=== PATIENT | female | born 1970 | race Two or more races ===

== ENCOUNTER 2020-12-07 18:04 | Inpatient (IN) | payer SELFPAY ==
[~2020-12-07] VITALS: Ht 162.6 cm; Wt 97.8 kg
--- NOTE | 2020-12-07 20:13 | PHYS DOC ---
Past Medical History Past Surgical History: Other Additional Past Surgical Histo: HEAD- CLOT REMOVED (MARIZA CAVAZOS APRN) General Adult EDM: Chief Complaint: EYE PROBLEMS HPI: HPI: Patient is a 50 year old female who presents with for last month she has had right eye redness with pain around the eye. She denies vision change, dizziness, headache, nausea, vomiting, chest pain, numbness or tingling, shortness of breath, abdominal pain, back pain, neck pain, fever, discharge from the eye. She denies any injury to the eye. She states that she went and saw an eye doctor on November 13 and they gave her tobramycin eye drops but that did not help. Patient has been off of her hypertensive medications for months. She states she does not remember what the name of the medication was. In the ED patient's blood pressure is in the 200s over 100s. She did have a stroke with a clot removal in 2016. Rates her pain at a 7 out of 10 at this time. (MARIZA CAVAZOS APRN) Review of Systems: Review of Systems: Constitutional: Denies fever or chills. [] Eyes: Denies change in visual acuity. +Right eye redness, +right eye pain[] HENT: Denies nasal congestion or sore throat. [] Respiratory: Denies cough or shortness of breath. [] Cardiovascular: Denies chest pain or edema. [] GI: Denies abdominal pain, nausea, vomiting, bloody stools or diarrhea. [] : Denies dysuria. [] Musculoskeletal: Denies back pain or joint pain. [] Integument: Denies rash. [] Neurologic: Denies headache, focal weakness or sensory changes. [] Endocrine: Denies polyuria or polydipsia. [] Lymphatic: Denies swollen glands. [] Psychiatric: Denies depression or anxiety. [] (MARIZA CAVAZOS APRN) Heart Score: C/O Chest Pain: No HEART Score for Chest Pain: HEART Score for Chest Pain Response (Comments) Value History Slighlty/Non-Suspicious 0 ECG Nonspecific Repolarizatio 1 Age >45 - < 65 1 Risk Factors 1 or 2 Risk Factors 1 Troponin < Normal Limit 0 Total 3 Risk Factors: Risk Factors: DM, Current or recent (<one month) smoker, HTN, HLP, family history of CAD, obesity. Risk Scores: Score 0 - 3: 2.5% MACE over next 6 weeks - Discharge Home Score 4 - 6: 20.3% MACE over next 6 weeks - Admit for Clinical Observation Score 7 - 10: 72.7% MACE over next 6 weeks - Early Invasive Strategies (MARIZA CAVAZOS APRN) Current Medications: Current Medications Medications (Trade) Dose Ordered Sig/Michelle Start Time Stop Time Status Last Admin Dose Admin Fluorescein Sodium (Ful-Sasha) 1 strip 1X ONCE 12/07/20 20:15 12/07/20 20:16 Hydralazine HCl (Apresoline Inj) 10 mg 1X ONCE 12/07/20 20:15 12/07/20 20:16 Tetracaine HCl (Tetracaine) 1 drop 1X ONCE 12/07/20 20:15 12/07/20 20:16 (MARIZA CAVAZOS APRN) Allergies: Allergies: Allergies Coded Allergies Type Severity Reaction Last Updated Verified No Known Drug Allergies 12/07/20 No (MARIZA CAVAZOS APRN) Physical Exam: PE: Constitutional: Well developed, well nourished, no acute distress, non-toxic appearance. [] HENT: Normocephalic, atraumatic, bilateral external ears normal, oropharynx moist, no oral exudates, nose normal. Right eye conjunctiva hemorrhage [] Eyes: PERRLA, EOMI, conjunctiva normal, no discharge. [] Neck: Normal range of motion, no tenderness, supple, no stridor. [] Cardiovascular:Heart rate regular rhythm, no murmur [] Lungs & Thorax: Bilateral breath sounds clear to auscultation [] Abdomen: Bowel sounds normal, soft, no tenderness, no masses, no pulsatile masses. [] Skin: Warm, dry, no erythema, no rash. [] Back: No tenderness, no CVA tenderness. [] Extremities: No tenderness, no cyanosis, no clubbing, ROM intact, no edema. [] Neurologic: Alert and oriented X 3, normal motor function, normal sensory function, no focal deficits noted. [] Psychologic: Affect normal, judgement normal, mood normal. [] (MARIZA CAVAZOS APRN) Current Patient Data: Vital Signs: Vital Signs Date Time Temp Pulse Resp B/P (MAP) Pulse Ox O2 Delivery O2 Flow Rate FiO2 12/07/20 19:38 98.2 81 20 221/123 (155) 97 Room Air 98.2 (MARIZA CAVAZOS APRN) EKG: EK and read by Dr. Bland as sinus rhythm and no STEMI (MARIZA CAVAZOS APRN) Radiology/Procedures: Radiology/Procedures: [] Impression: [facility] [address] [place] [address] IMAGING REPORT Signed PATIENT: LATONYA DE LA CRUZOUNT: [id number] : 1970 LOCATION: ER AGE: 50 SEX: F EXAM STATUS: REG ER ORD. PHYSICIAN: MARIZA CAVAZOS APRN REASON: headache behind right eye PROCEDURE: CT HEAD WO CONTRAST EXAM: CT Head without IV contrast CLINICAL HISTORY: Reason: headache behind right eye / Spl. Instructions: / History: COMPARISON: None. TECHNIQUE: Routine CT of the head without contrast. PQRS compliance statement - One or more of the following individualized dose reduction techniques were utilized for this study: 1. Automated exposure control 2. Adjustment of the mA and/or kV according to patient size 3. Use of iterative reconstruction technique FINDINGS: There is no evidence of hemorrhage, mass or extra-axial fluid collection. Houston-white differentiation is maintained with no evidence of edema. There is no mass effect or shift of the intracranial structures. The ventricles, basilar cisterns and cortical sulci are normal in size and configuration for the patients stated age. Wedge-shaped low-attenuation in the right cerebellum likely cerebellar infarct. Frontal craniotomy changes are seen with associated metallic clips. There is normal aeration of the visualized paranasal sinuses and mastoid air cells. The visualized portions of the orbits are normal. Atherosclerotic calcifications of the intracranial internal carotid arteries is seen. IMPRESSION: 1. Wedge-shaped low-attenuation in the right cerebellum, cerebellar infarct likely chronic. This can be further assessed by MRI if clinically indicated. 2. No evidence for acute intracranial process Electronically signed by: Conor Mack MD (12/07/2020 9:37 PM) [facility] DI[facility]ATED and SIGNED BY: CONOR MACK MD DATE: 12/07/[id number] 0 [facility] [address] [place] [address] IMAGING REPORT Signed PATIENT: ARIANNA DE LA CRUZ: [id number] : 1970 LOCATION: ER AGE: 50 SEX: F EXAM STATUS: REG ER ORD. PHYSICIAN: MARIZA CAVAZOS APRN REASON: conjunctiva hemorrhage, hypertensive emergency, previous stroke. PROCEDURE: CT ORBITS WO CONTRAST CT orbits without contrast PQRS statement: CT scans at this facility use dose reduction including either automated exposure control, iterative reconstructions, and /or weight based radiation dosing via mA and kV modification when appropriate to reduce radiation dose to as low as reasonably achievable. HISTORY: Conjuncitval hemorrhage, hypertensive emergency, prior stroke. FINDINGS: Bony orbits intact. No fracture of the orbits. Imaged facial bones are intact. Mild mucosal thickening of the floor the maxillary sinuses, paranasal sinuses are otherwise well-aerated. No orbital edema, hematoma or mass. No ocular proptosis. The ocular globes, extraocular muscles, lacrimal glands and op tic nerves and facet are symmetric and normal. Periorbital soft tissues are symmetric and normal. Embolization coils anterior anterior interhemispheric fissure. IMPRESSION: Normal CT orbits. Electronically signed by: Isaak Lowery MD (12/07/2020 10:47 PM) [facility] [place] DICTATED and SIGNED BY: ISAAK LOWERY MD DATE: 12/07/[id number] 0 (MARIZA CAVAZOS APRN) Course & Med Decision Making: Course & Med Decision Making Pertinent Labs and Imaging studies reviewed. (See chart for details) See HPI. Alert and oriented x4. Ambulatory steady gait. Skin pink warm and dry. Right eye conjunctiva hemorrhage. PERRLA. Speaks in full clear sentences. No focal weakness or numbness and tingling. EKG shows a sinus rhythm and no STEMI. Patient is given 10 mg of hydralazine IV. No extremity edema. Imwnuz-bblu-lilwhi intact. No extraocular pain. Denies vision loss, floaters, or halo's. After hydralazine patient's blood pressure is still 240s over 100s. Patient is given labetalol. Patient mid to hospitalist for hypertensive emergency. Eye Exam Visual accuity: See nursing note Eye exam: PERRL, Extraocular muscles intact. No signs of ruptured globe. Left sclera pink. Right sclera hemorrhage. Red reflex present. Foreign body: No foreign bodies seen with examination or with lid flip exam. Obed-pen: Not in working order Fluorescein test: No corneal abrasion. No fluorescein uptake Anesthetic: Tetracaine [] (MARIZA CAVAZOS APRN) Course & Med Decision Making I have participated in the care of this patient and I have reviewed and agree with all pertinent clinical information above including history, exam, and recommendations. Deepak Bland DO (DEEPAK BLAND DO) Sisi Disclaimer: Sisi Disclaimer: This electronic medical record was generated, in whole or in part, using a voice recognition dictation system. (MARIZA CAVAZOS APRN) Departure Departure Impression: Primary Impression: Hypertensive emergency Additional Impression: Scleral hemorrhage of right eye Disposition: ADMITTED INPATIENT Admitting Physician: TAQUERIA (MARIZA CAVAZOS APRN) Condition: STABLE Referrals: NO PCP (PCP) MARIZA CAVAZOS APRN Dec 07, 2020 20:13 DEEPAK BLAND DO Dec 08, 2020 00:18
[2020-12-07] MEDS ORDERED: FLUORESCEIN OPHTH TEST STRIP. OD ONE (20:15)
[2020-12-07] MEDS ORDERED: hydrALAZINE 20 MG/ML VIAL. IVP ONE (20:15)
[2020-12-07] MEDS ORDERED: TETRACAINE 0.5% OPHTH SOLUTION 4ML BOTTLE. OD ONE (20:15)
[2020-12-07 20:34] LABS: BILIRUBIN,URINE NEGATIVE (NEG); CLARITY,URINE CLEAR; COLOR,URINE YELLOW; NITRITE,URINE NEGATIVE (NEG); PH,URINE 5.5 (<5.0-8.0); PROTEIN,URINE NEGATIVE (NEG-TRACE); UROBILINOGEN,URINE 0.2 mg/dL (0.2 mg/dL)
[2020-12-07 20:40] LABS: BACTERIA,URINE FEW /HPF (0-FEW); RBC,URINE 0 /HPF (0-2); WBC,URINE OCC /HPF (0-4)
[2020-12-07 20:48] LABS: BASO # 0.1 x10^3/uL (0.0-0.2); BASO % 2 % (0-3); EOS # 0.1 x10^3/uL (0.0-0.7); EOS % 1 % (0-3); HEMATOCRIT 36.4 % (36.0-47.0); HEMOGLOBIN 12.2 g/dL (12.0-15.5); LYMPH # 2.6 x10^3/uL (1.0-4.8); LYMPH % 34 % (24-48); MEAN CORPUSCULAR HEMOGLOBIN 26 pg (25-35); MEAN CORPUSCULAR HGB CONC 34 g/dL (31-37); MEAN CORPUSCULAR VOLUME 78 fL (79-100); MONO # 0.6 x10^3/uL (0.0-1.1); MONO % 8 % (0-9); NEUT # 4.3 x10^3/uL (1.8-7.7); NEUT % 56 % (31-73); PLATELET COUNT 411 x10^3/uL (140-400); RED BLOOD COUNT 4.68 x10^6/uL (3.50-5.40); RED CELL DISTRIBUTION WIDTH 17.8 % (11.5-14.5); WHITE BLOOD COUNT 7.7 x10^3/uL (4.0-11.0)
[2020-12-07 20:59] LABS: GFR 58.2; POTASSIUM 3.3 mmol/L (3.5-5.1)
[2020-12-07 21:05] LABS: ALBUMIN 3.1 g/dL (3.4-5.0); ALBUMIN/GLOBULIN RATIO 0.7 (1.0-1.7); TOTAL BILIRUBIN 0.3 mg/dL (0.2-1.0); TOTAL PROTEIN 7.6 g/dL (6.4-8.2)
--- NOTE | 2020-12-07 21:39 | RAD ---
EXAM: CT Head without IV contrast CLINICAL HISTORY: Reason: headache behind right eye / Spl. Instructions: / History: COMPARISON: None. TECHNIQUE: Routine CT of the head without contrast. PQRS compliance statement - One or more of the following individualized dose reduction techniques wer e utilized for this study: 1. Automated exposure control 2. Adjustment of the mA and/or kV according to patient size 3. Use of iterative reconstruction technique FINDINGS: There is no evidence of hemorrhage, mass or extra-axial fluid collection. [place]-white differentiation is maintained with no evidence of edema. There is no mass effect or shift of the intracranial structures. The ventricles, basilar cisterns and cortical sulci are normal in size and configuration for the holden ents stated age. Wedge-shaped low-attenuation in the right cerebellum likely cerebellar infarct. Frontal craniotomy changes are seen with associated metallic clips. There is normal aeration of the visualized paranasal sinuses and mastoid air cells. The visualized portions of the orbits are normal. Atherosclerotic calcifications of the intracranial internal carotid arteries is seen. IMPRESSION: 1. Wedge-shaped low-attenuation in the right cerebellum, cerebellar infarct likely chronic. This can be further assessed by MRI if clinically indicated. 2. No evidence for acute intracranial process Electronically signed by: Conor Ivey MD (12/07/2020 9:37 PM) [facility]
--- NOTE | 2020-12-07 22:21 | RAD ---
AP chest x-ray HISTORY: Hypertensive emergency. FINDINGS: Heart size upper limits normal. Mild tortuosity of the thoracic aorta at the arch and desce nding aorta. No pneumothorax, pulmonary opacities or pleural effusions. Bones are unremarkable. IMPRESSION: No acute process. Electronically signed by: Miguel A Lowery MD (12/07/2020 10:19 PM) [facility]
--- NOTE | 2020-12-07 22:49 | RAD ---
CT orbits without contrast PQRS statement: CT scans at this facility use dose reduction including either automated exposure cont rol, iterative reconstructions, and /or weight based radiation dosing via mA and kV modification when appropriate to reduce radiation dose to as low as reasonably achievable. HISTORY: Conjuncitval hemorrhage, hypertensive emergency, prior stroke. FINDINGS: Bony orbits intact. No fracture of the orbits. Imaged facial bones are intact. Mild mucosal thickening of the floor the maxillary sinuses, paranasal sinuses are otherwise well-aerated. No orbi vinita edema, hematoma or mass. No ocular proptosis. The ocular globes, extraocular muscles, lacrimal gl ands and optic nerves and facet are symmetric and normal. Periorbital soft tissues are symmetric and normal. Embolization coils anterior anterior interhemispheric fissure. IMPRESSION: Normal CT orbits. Electronically signed by: Miguel A Lowery MD (12/07/2020 10:47 PM) [facility]
[2020-12-07] MEDS ORDERED: LABETALOL 20 MG/4 ML DISP.SYRIN. IVP ONE (23:00)
--- NOTE | 2020-12-07 23:56 | EKG ---
[facility] [address] [place] [address] Test Date: 2020-12-07 Test Time: 20:30:35 Pat Name: GYPSY DE LA CRUZ Department: Room: [facility] Gender: F Axle Polisher: : 1970 Requested By: MARIZA CAVAZOS Order Number: [id number] Reading MD: Ravindra Marroquin MD Measurements Intervals [place] Rate: 70 P: 32 CT: 182 QRS: -8 QRSD: 94 T: 154 QT: 408 QTc: 443 Interpretive Statements SINUS RHYTHM LEFTWARD AXIS LVH WITH REPOLARIZATION ABNORMALITY ABNORMAL ECG Electronically Signed On 12-11-2020 11:22:48 CDT by Ravnidra Marroquin MD
[2020-12-08] VITALS (8 sets, daily range): BP systolic 156–226; BP diastolic 80–98
[2020-12-08] MEDS ORDERED: LABETALOL 20 MG/4 ML DISP.SYRIN. IVP ONE (00:30)
[2020-12-08] MEDS ORDERED: METF500T16 PO (01:12)
[2020-12-08] MEDS ORDERED: blood pressure pill PO (01:12)
[2020-12-08] MEDS: ACETAMINOPHEN 325 MG TABLET. PO PRN ×3 (01:45→14:51)
[2020-12-08] MEDS ORDERED: LABETALOL 20 MG/4 ML DISP.SYRIN. IVP PRN (08:15)
[2020-12-08] MEDS ORDERED: FLU VACC QUAD 21-22 (6MOS+) PF 0.5 ML SYRINGE. VAX IM ONE (09:00)
[2020-12-08] MEDS ORDERED: METO100T5 PO (10:10)
[2020-12-08] MEDS: metFORMIN 500 MG TABLET PO SCH ×2 (10:12→17:14)
--- NOTE | 2020-12-08 10:12 | PDOC2 ---
BRUNO HULL OFFICE MANAGER 12/08/20 1011: CARDIAC CONSULT DATE OF CONSULT Date of Consult DATE: 12/08/20 TIME: 10:10 REASON FOR CONSULT Reason for Consult: HTN REFERRING PHYSICIAN Referring Physician: Nate SOURCE Source: Caregiver (daughter), Chart review, Patient HISTORY OF PRESENT ILLNESS HISTORY OF PRESENT ILLNESS This is a pleasant 50 yo female admitted for complains of YU and redness and pain to her right eye. No visual changes. No chest pain, SOA, nausea or vomiting. She has been having this throbbing YU in the last few days. Upon admission she was noted with significantly high BP. She is and daughter is in room and reported that she takes about 3 BP meds which she has stopped taking at least in the last week. Reports that she lost it. No recent falls or injury. No hx of CAD, renal disease but does have hx of SAH and aneurysm clipping. Her right has been red bu no discharge. 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) FAMILY HISTORY Family History: Stroke (father) SOCIAL HISTORY Smoke: No ALCOHOL: none Drugs: None Lives: with Family CURRENT MEDICATIONS CURRENT MEDICATIONS Current Medications Medications (Trade) Dose Ordered Sig/Michelle Route PRN Reason Start Time Stop Time Status Last Admin Dose Admin Tetracaine HCl (Tetracaine) 1 drop 1X ONCE OD 12/07/20 20:15 12/07/20 20:16 DC 12/07/20 20:51 Fluorescein Sodium (Ful-Sasha) 1 strip 1X ONCE OD 12/07/20 20:15 12/07/20 20:16 DC 12/07/20 20:51 Hydralazine HCl (Apresoline Inj) 10 mg 1X ONCE IVP 12/07/20 20:15 12/07/20 20:16 DC 12/07/20 20:49 Labetalol HCl (Normodyne Iv Push) 10 mg 1X ONCE IVP 12/07/20 23:00 12/07/20 23:01 DC 12/07/20 22:41 Labetalol HCl (Normodyne Iv Push) 10 mg 1X ONCE IVP 12/08/20 00:30 12/08/20 00:31 DC 12/08/20 00:00 Influenza Virus Vaccine Quadrival (Flulaval Quad [id number] Syringe) 0.5 ml ONCE ONCE VAX IM 12/08/20 09:00 12/08/20 09:01 DC 12/08/20 08:48 Acetaminophen (Tylenol) 650 mg PRN Q6HRS PRN PO MILD PAIN / TEMP > 100.3'F 12/08/20 01:45 12/08/20 08:40 Amlodipine Besylate (Norvasc) 10 mg 1X ONCE PO 12/08/20 07:00 12/08/20 07:01 DC 12/08/20 06:32 Labetalol HCl (Normodyne Iv Push) 20 mg PRN Q2HR PRN IVP HYPERTENSION; SBP > 160 12/08/20 08:15 12/08/20 09:38 DC 12/08/20 08:40 ALLERGIES ALLERGIES: Coded Allergies: No Known Drug Allergies (Unverified , 12/07/20) ROS Review of System 14 point ROS evaluated with pertinent positives noted per HPI PHYSICAL EXAM General: Alert, Oriented X3, Cooperative, No acute distress HEENT: Atraumatic, Mucous membr. moist/pink, Other (right eye subconjunctival erythema) Heart: Regular rate (SR), Normal S1, Normal S2, No murmurs Abdomen: Soft, No tenderness Extremities: No cyanosis, No edema Skin: No breakdown, No significant lesion Neuro: Normal speech, Sensation intact Psych/Mental Status: Mental status NL, Mood NL MUSCULOSKELETAL: Full range of motion without pain VITALS/I&O VITALS/I&O: Vital Signs Date Time Temp Pulse Resp B/P (MAP) Pulse Ox O2 Delivery O2 Flow Rate FiO2 12/08/20 08:40 85 226/98 12/08/20 07:38 98.5 16 100 Room Air 98.5 I & O 12/07/20 12/07/20 12/08/20 15:00 23:00 07:00 Intake Total 350 ml Balance 350 ml LABS Lab: Laboratory Tests Test 12/07/20 20:20 12/07/20 20:40 12/08/20 02:00 Urine Collection Type Unknown Urine Color Yellow Urine Clarity Clear Urine pH 5.5 (<5.0-8.0) Urine Specific Model 1.015 (1.000-1.030) Urine Protein Negative mg/dL (NEG-TRACE) Urine Glucose (UA) 500 mg/dL (NEG) Urine Ketones (Stick) Negative mg/dL (NEG) Urine Blood Negative (NEG) Urine Nitrite Negative (NEG) Urine Bilirubin Negative (NEG) Urine Urobilinogen Dipstick 0.2 mg/dL (0.2 mg/dL) Urine Leukocyte Esterase Negative (NEG) Urine RBC 0 /HPF (0-2) Urine WBC Occ /HPF (0-4) Urine Squamous Epithelial Cells Few /LPF Urine Bacteria Few /HPF (0-FEW) White Blood Count 7.7 x10^3/uL (4.0-11.0) Red Blood Count 4.68 x10^6/uL (3.50-5.40) Hemoglobin 12.2 g/dL (12.0-15.5) Hematocrit 36.4 % (36.0-47.0) Mean Corpuscular Volume 78 fL (79-100) L Mean Corpuscular Hemoglobin 26 pg (25-35) Mean Corpuscular Hemoglobin Concent 34 g/dL (31-37) Red Cell Distribution Width 17.8 % (11.5-14.5) H Platelet Count 411 x10^3/uL (140-400) H Neutrophils (%) (Auto) 56 % (31-73) Lymphocytes (%) (Auto) 34 % (24-48) Monocytes (%) (Auto) 8 % (0-9) Eosinophils (%) (Auto) 1 % (0-3) Basophils (%) (Auto) 2 % (0-3) Neutrophils # (Auto) 4.3 x10^3/uL (1.8-7.7) Lymphocytes # (Auto) 2.6 x10^3/uL (1.0-4.8) Monocytes # (Auto) 0.6 x10^3/uL (0.0-1.1) Eosinophils # (Auto) 0.1 x10^3/uL (0.0-0.7) Basophils # (Auto) 0.1 x10^3/uL (0.0-0.2) Sodium Level 139 mmol/L (136-145) Potassium Level 3.3 mmol/L (3.5-5.1) L Chloride Level 101 mmol/L (98-107) Carbon Dioxide Level 30 mmol/L (21-32) Anion Gap 8 (6-14) Blood Urea Nitrogen 17 mg/dL (7-20) Creatinine 1.0 mg/dL (0.6-1.0) Estimated GFR (Cockcroft-Gault) 58.2 BUN/Creatinine Ratio 17 (6-20) Glucose Level 283 mg/dL (70-99) H Calcium Level 9.0 mg/dL (8.5-10.1) Total Bilirubin 0.3 mg/dL (0.2-1.0) Aspartate Amino Transferase (AST) 10 U/L (15-37) L Alanine Aminotransferase (ALT) 23 U/L (14-59) Alkaline Phosphatase 88 U/L (46-116) Troponin I Quantitative < 0.017 ng/mL (0.000-0.055) < 0.017 ng/mL (0.000-0.055) JW-Jms-P-Type Natriuretic Peptide 267 pg/mL (0-124) H Total Protein 7.6 g/dL (6.4-8.2) Albumin 3.1 g/dL (3.4-5.0) L Albumin/Globulin Ratio 0.7 (1.0-1.7) L Laboratory Tests 12/07/20 20:40 Laboratory Tests 12/07/20 20:40 ASSESSMENT/PLAN ASSESSMENT/PLAN 1. HTN urgency 2. YU: likely due to high BP. Imaging did not reveal any acute issues 3. Right eye subconjunctival erythema: likely from high BP. per PCP 4. Hx of SAH with craniotomy and aneurysm clipping 5. DM2 6. Morbid obesity Recommendations 1. She has stopped 3 BP meds at least a week ago as she lost it. Will restart lisinopril, HCTZ and norvasc. Will adjust per BP trend. 2. TTE, TSH and A1C 3. Start on statin 4. Discussed compliance CELY SOTELO MD 12/08/201807: CARDIAC CONSULT ASSESSMENT/PLAN ASSESSMENT/PLAN Patient seen and examined. Agree with LOCAL COORDINATOR's assessment and plan. Hypertensive urgency due to non compliance Agree with resuming home anti-hypertensives and titrate for better control 2D echo showed normal LVF Thank you for your consultation BRUNO HULL APRN Dec 08, 2020 10:11 CELY SOETLO MD Dec 08, 2020 18:08
[2020-12-08] MEDS: hydrALAZINE 20 MG/ML VIAL. IVP PRN ×2 (10:14→14:48)
[2020-12-08 10:54] LABS: CHOLESTEROL/HDL RATIO 3.4
[2020-12-08] MEDS ORDERED: METOPROLOL TART IMMED RELEASE 50 MG TABLET. PO SCH ×2 (11:00→21:00)
[2020-12-08] MEDS: METOPROLOL SUCC 24HR ER 100 MG TAB.ER.24H. PO SCH (11:03)
--- NOTE | 2020-12-08 11:08 | PDOC ---
[employer] PROGRESS NOTE Date of Service DOS: DATE: 12/08/20 TIME: 10:54 Chief Complaint Chief Complaint Hypertensive emergency Scleral hemorrhage R. eye Hx of CVA History of Present Illness History of Present Illness 12/08 Patient seen and examined at bedside Charts reviewed Discussed HTN management with patient and daughter Discussed with RN and SW Vitals/I&O Vitals/I&O: Vital Signs Date Time Temp Pulse Resp B/P (MAP) Pulse Ox O2 Delivery O2 Flow Rate FiO2 12/08/20 10:14 76 200/97 12/08/20 08:00 Room Air 12/08/20 07:38 98.5 16 100 98.5 I & O 12/07/20 12/07/20 12/08/20 15:00 23:00 07:00 Intake Total 350 ml Balance 350 ml Physical Exam Physical Exam: Constitutional: Well developed, well nourished, no acute distress, non-toxic appearance. [] HENT: Normocephalic, atraumatic, bilateral external ears normal, oropharynx moist, no oral exudates, nose normal. Right eye conjunctiva hemorrhage [] Eyes: PERRLA, EOMI, conjunctiva normal, no discharge. [] Neck: Normal range of motion, no tenderness, supple, no stridor. [] Cardiovascular:Heart rate regular rhythm, no murmur [] Lungs & Thorax: Bilateral breath sounds clear to auscultation [] Abdomen: Bowel sounds normal, soft, no tenderness, no masses, no pulsatile masses. [] Skin: Warm, dry, no erythema, no rash. [] Back: No tenderness, no CVA tenderness. [] Extremities: No tenderness, no cyanosis, no clubbing, ROM intact, no edema. [] Neurologic: Alert and oriented X 3, normal motor function, normal sensory function, no focal deficits noted. [] Psychologic: Affect normal, judgement normal, mood normal. [] General: Alert, Oriented X3, Cooperative Heart: Regular rate, Normal S1, Normal S2 Lungs: Clear Abdomen: Normal bowel sounds, Soft, No tenderness Extremities: No clubbing, No cyanosis Skin: No rashes, No breakdown Labs Labs: Laboratory Tests Test 12/07/20 20:20 12/07/20 20:40 12/08/20 02:00 Urine Collection Type Unknown Urine Color Yellow Urine Clarity Clear Urine pH 5.5 (<5.0-8.0) Urine Specific [place] 1.015 (1.000-1.030) Urine Protein Negative mg/dL (NEG-TRACE) Urine Glucose (UA) 500 mg/dL (NEG) Urine Ketones (Stick) Negative mg/dL (NEG) Urine Blood Negative (NEG) Urine Nitrite Negative (NEG) Urine Bilirubin Negative (NEG) Urine Urobilinogen Dipstick 0.2 mg/dL (0.2 mg/dL) Urine Leukocyte Esterase Negative (NEG) Urine RBC 0 /HPF (0-2) Urine WBC Occ /HPF (0-4) Urine Squamous Epithelial Cells Few /LPF Urine Bacteria Few /HPF (0-FEW) White Blood Count 7.7 x10^3/uL (4.0-11.0) Red Blood Count 4.68 x10^6/uL (3.50-5.40) Hemoglobin 12.2 g/dL (12.0-15.5) Hematocrit 36.4 % (36.0-47.0) Mean Corpuscular Volume 78 fL (79-100) Mean Corpuscular Hemoglobin 26 pg (25-35) Mean Corpuscular Hemoglobin Concent 34 g/dL (31-37) Red Cell Distribution Width 17.8 % (11.5-14.5) Platelet Count 411 x10^3/uL (140-400) Neutrophils (%) (Auto) 56 % (31-73) Lymphocytes (%) (Auto) 34 % (24-48) Monocytes (%) (Auto) 8 % (0-9) Eosinophils (%) (Auto) 1 % (0-3) Basophils (%) (Auto) 2 % (0-3) Neutrophils # (Auto) 4.3 x10^3/uL (1.8-7.7) Lymphocytes # (Auto) 2.6 x10^3/uL (1.0-4.8) Monocytes # (Auto) 0.6 x10^3/uL (0.0-1.1) Eosinophils # (Auto) 0.1 x10^3/uL (0.0-0.7) Basophils # (Auto) 0.1 x10^3/uL (0.0-0.2) Sodium Level 139 mmol/L (136-145) Potassium Level 3.3 mmol/L (3.5-5.1) Chloride Level 101 mmol/L (98-107) Carbon Dioxide Level 30 mmol/L (21-32) Anion Gap 8 (6-14) Blood Urea Nitrogen 17 mg/dL (7-20) Creatinine 1.0 mg/dL (0.6-1.0) Estimated GFR (Cockcroft-Gault) 58.2 BUN/Creatinine Ratio 17 (6-20) Glucose Level 283 mg/dL (70-99) Calcium Level 9.0 mg/dL (8.5-10.1) Total Bilirubin 0.3 mg/dL (0.2-1.0) Aspartate Amino Transf (AST/SGOT) 10 U/L (15-37) Alanine Aminotransferase (ALT/SGPT) 23 U/L (14-59) Alkaline Phosphatase 88 U/L (46-116) Troponin I Quantitative < 0.017 ng/mL (0.000-0.055) < 0.017 ng/mL (0.000-0.055) GU-Uzl-E-Type Natriuretic Peptide 267 pg/mL (0-124) Total Protein 7.6 g/dL (6.4-8.2) Albumin 3.1 g/dL (3.4-5.0) Albumin/Globulin Ratio 0.7 (1.0-1.7) Review of Systems Review of Systems: ROS negative Assessment and Plan Assessmemt and Plan Problems Medical Problems: (1) Hypertensive emergency Status: Acute (2) Scleral hemorrhage of right eye Status: Acute Hypertensive emergency Scleral hemorrhage R. Eye Hx of CVA Plan Cardiology input appreciated Continue monitoring on telemetry Continue antihypertensive therapy serial EKGs and enzymes Started patient on metoprolol Restarted home meds DVT prophylaxis (consider SCDs) Disposition pending Full Code Comment Review of Relevant I have reviewed the following items albert (where applicable) has been applied. Medications: Current Medications Medications (Trade) Dose Ordered Sig/Michelle Route PRN Reason Start Time Stop Time Status Last Admin Dose Admin Tetracaine HCl (Tetracaine) 1 drop 1X ONCE OD 12/07/20 20:15 12/07/20 20:16 DC 12/07/20 20:51 Fluorescein Sodium (Ful-Sasha) 1 strip 1X ONCE OD 12/07/20 20:15 12/07/20 20:16 DC 12/07/20 20:51 Hydralazine HCl (Apresoline Inj) 10 mg 1X ONCE IVP 12/07/20 20:15 12/07/20 20:16 DC 12/07/20 20:49 Labetalol HCl (Normodyne Iv Push) 10 mg 1X ONCE IVP 12/07/20 23:00 12/07/20 23:01 DC 12/07/20 22:41 Labetalol HCl (Normodyne Iv Push) 10 mg 1X ONCE IVP 12/08/20 00:30 12/08/20 00:31 DC 12/08/20 00:00 Influenza Virus Vaccine Quadrival (Flulaval Quad Syringe) 0.5 ml ONCE ONCE VAX IM 12/08/20 09:00 12/08/20 09:01 DC 12/08/20 08:48 Acetaminophen (Tylenol) 650 mg PRN Q6HRS PRN PO MILD PAIN / TEMP > 100.3'F 12/08/20 01:45 12/08/20 08:40 Amlodipine Besylate (Norvasc) 10 mg 1X ONCE PO 12/08/20 07:00 12/08/20 07:01 DC 12/08/20 06:32 Labetalol HCl (Normodyne Iv Push) 20 mg PRN Q2HR PRN IVP HYPERTENSION; SBP > 160 12/08/20 08:15 12/08/20 09:38 DC 12/08/20 08:40 Metformin HCl (Glucophage) 500 mg BIDWMEALS PO 12/08/20 09:00 12/08/20 10:12 Hydralazine HCl (Apresoline Inj) 10 mg PRN Q4HRS PRN IVP ELEVATED BP, SEE COMMENTS 12/08/20 09:30 12/08/20 10:14 Justifications for Admission Other Justification ANTONIO BORDEN III DO Dec 08, 2020 11:08
--- NOTE | 2020-12-08 12:50 | NUR ---
SS following for discharge planning. SS reviewed pt chart and discussed with pt RN. Pt is from home and is currently on room air. Cardiology consulted. Self pay. Med Assist following. SS will continue to follow for discharge planning.
--- NOTE | 2020-12-08 16:38 | CARD ---
MR#: [id number] Date of Study: 12/08/2020 Ordering Physician: BRUNO HULL, Referring Physician: BRUNO HULL Tech: Mary Stephenson [facility] APPROVED REPORT EXAM: Two-dimensional and M-mode echocardiogram with Doppler and color Doppler. Other Information Quality : GoodHR: 81bpm Rhythm : NSR INDICATION Hypertension/HCVD RISK FACTORS Hypertension Obesity 2D DIMENSIONS RVDd3.7 (2.9-3.5cm)Left Atrium(2D)4.1 (1.6-4.0cm) IVSd1.5 (0.7-1.1cm)Aortic Root(2D)3.2 (2.0-3.7cm) LVDd4.4 (3.9-5.9cm)LVOT Diameter2.2 (1.8-2.4cm) PWd1.5 (0.7-1.1cm)LVDs2.6 (2.5-4.0cm) FS (%) 40.4 %SV62.9 ml LVEF(%)71.3 (>50%) Aortic Valve AoV Peak Jace.228.8cm/sAoV VTI36.3cm AO Peak GR.20.9mmHgLVOT Peak Jace.143.7cm/s AO Mean GR.10mmHgAVA (VMAX)2.42cm2 Mitral Valve MV E Kujturvg36.6cm/sMV DECEL [id number] MV A Xhfnpuhr78.7cm/sE/A Ratio0.7 Pulmonary Valve PV Peak Yptvluuo172.2cm/s LEFT VENTRICLE The left ventricle is normal size. There is moderate concentric left ventricular hypertrophy. The lef t ventricular systolic function is normal and the ejection fraction is within normal range. Estimated ejection fraction 55-60%. There is normal LV segmental wall motion. Transmitral Doppler flow pattern is Grade I-abnormal relaxation pattern. RIGHT VENTRICLE The right ventricle is normal size. There is normal right ventricular wall thickness. The right ventr icular systolic function is normal. ATRIA The left atrium size is normal. The right atrium size is normal. The interatrial septum is intact wit h no evidence for an atrial septal defect or patent foramen ovale as noted on 2-D or Doppler imaging. AORTIC VALVE The aortic valve is normal in structure and function. Doppler and Color Flow revealed no significant aortic regurgitation. There is no significant aortic valvular stenosis. MITRAL VALVE The mitral valve is normal in structure and function. There is no evidence of mitral valve prolapse. There is no mitral valve stenosis. Doppler and Color Flow revealed no mitral valve regurgitation note d. TRICUSPID VALVE The tricuspid valve is normal in structure and function. Doppler and Color Flow revealed no tricuspid valve regurgitation noted. There is no tricuspid valve stenosis. PULMONIC VALVE Doppler and Color Flow revealed no pulmonic valvular regurgitation. There is no pulmonic valvular rebekah nosis. GREAT VESSELS The aortic root is normal in size. The ascending aorta is normal in size. The IVC is normal in size a nd collapses >50% with inspiration. PERICARDIAL EFFUSION There is no evidence of significant pericardial effusion. Critical Notification Critical Value: No <Conclusion> The left ventricular systolic function is normal and the ejection fraction is within normal range. E stimated ejection fraction 55-60%. There is normal LV segmental wall motion. Signed by : Ravindra Marroquin, Electronically Approved : 12/08/2020 16:38:26
[2020-12-08] MEDS ORDERED: ATORVASTATIN CALCIUM 20 MG TABLET PO SCH (21:00)
[2020-12-08] MEDS: cloNIDine HCL 0.1 MG TABLET PO SCH (22:04)
[2020-12-08 23:07] LABS: HEMOGLOBIN A1C 11.7 % (4.8-5.6)
[2020-12-09 03:50] VITALS: BP 177/103
[2020-12-09 07:00] VITALS: BP 164/99
[2020-12-09] MEDS: METOPROLOL SUCC 24HR ER 100 MG TAB.ER.24H. PO SCH (08:12)
[2020-12-09] MEDS: cloNIDine HCL 0.1 MG TABLET PO SCH ×2 (08:12→13:56)
[2020-12-09] MEDS: metFORMIN 500 MG TABLET PO SCH (08:12)
[2020-12-09] MEDS ORDERED: hydroCHLOROthiazide 12.5 MG CAPSULE PO SCH (09:00)
[2020-12-09] MEDS ORDERED: LISINOPRIL 20 MG TABLET PO SCH (09:00)
[2020-12-09] MEDS ORDERED: METOPROLOL SUCC 24HR ER 100 MG TAB.ER.24H. PO SCH ×2 (09:00)
[2020-12-09 11:00] VITALS: BP 165/88
--- NOTE | 2020-12-09 12:01 | PDOC ---
[employer] PROGRESS NOTE Date of Service DOS: DATE: 12/09/20 TIME: 11:55 Chief Complaint Chief Complaint Hypertensive emergency Scleral hemorrhage R. eye Hx of CVA History of Present Illness History of Present Illness 12/09 Pt examined and seen at bedside Charts reviewed Discussed anti-hypertensive med changes with pt Encouraged low-salt diet compliance Discussed discharge plans and need for outpatient cardiology follow up ELEAZAR and FARIDA 12/08 Patient seen and examined at bedside Charts reviewed Discussed HTN management with patient and daughter Discussed with RN and FARIDA Vitals/I&O Vitals/I&O: Vital Signs Date Time Temp Pulse Resp B/P (MAP) Pulse Ox O2 Delivery O2 Flow Rate FiO2 12/09/20 08:13 71 164/99 12/09/20 08:00 Room Air 12/09/20 07:00 99.0 18 96 99.0 I & O 12/08/20 12/08/20 12/09/20 15:00 23:00 07:00 Intake Total 580 ml 180 ml 0 ml Balance 580 ml 180 ml 0 ml Physical Exam Physical Exam: Constitutional: Well developed, well nourished, no acute distress, non-toxic appearance. [] HENT: Normocephalic, atraumatic, bilateral external ears normal, oropharynx moist, no oral exudates, nose normal. Right eye conjunctiva hemorrhage [] Eyes: PERRLA, EOMI, conjunctiva normal, no discharge. [] Neck: Normal range of motion, no tenderness, supple, no stridor. [] Cardiovascular:Heart rate regular rhythm, no murmur [] Lungs & Thorax: Bilateral breath sounds clear to auscultation [] Abdomen: Bowel sounds normal, soft, no tenderness, no masses, no pulsatile masses. [] Skin: Warm, dry, no erythema, no rash. [] Back: No tenderness, no CVA tenderness. [] Extremities: No tenderness, no cyanosis, no clubbing, ROM intact, no edema. [] Neurologic: Alert and oriented X 3, normal motor function, normal sensory function, no focal deficits noted. [] Psychologic: Affect normal, judgement normal, mood normal. [] General: Alert, Oriented X3, Cooperative, No acute distress Heart: Regular rate (SR), Normal S1, Normal S2, No murmurs Lungs: Clear Abdomen: Normal bowel sounds, Soft, No tenderness Extremities: No cyanosis, No edema Skin: No breakdown, No significant lesion Labs Labs: Laboratory Tests Test 12/08/20 21:33 12/09/20 08:17 Glucose (Fingerstick) 303 mg/dL (70-99) 177 mg/dL (70-99) Review of Systems Review of Systems: ROS negative Assessment and Plan Assessmemt and Plan Problems Medical Problems: (1) Hypertensive emergency Status: Acute (2) Scleral hemorrhage of right eye Status: Acute Hypertensive emergency Scleral hemorrhage R. Eye Hx of CVA Plan Probable discharge today, per cardiology approval Cardiology input appreciated Continue monitoring on telemetry Continue antihypertensive therapy (norvasc, clonidine, HCTZ) serial EKGs and enzymes Low sodium diet encouraged Restarted home meds DVT prophylaxis Disposition: Likely today, if ok with cardiology as noted above Full Code Comment Review of Relevant I have reviewed the following items albert (where applicable) has been applied. Medications: Current Medications Medications (Trade) Dose Ordered Sig/Michelle Route PRN Reason Start Time Stop Time Status Last Admin Dose Admin Amlodipine Besylate (Norvasc) 10 mg DAILY PO 12/09/20 09:00 12/09/20 08:12 Lisinopril (Prinivil) 20 mg DAILY PO 12/09/20 09:00 12/09/20 08:13 Atorvastatin Calcium (Lipitor) 20 mg QHS PO 12/08/20 21:00 12/08/20 22:04 Hydrochlorothiazide (Microzide) 12.5 mg DAILY PO 12/09/20 09:00 12/09/20 08:12 Clonidine HCl (Catapres) 0.1 mg TID PO 12/08/20 22:00 12/09/20 08:12 Justifications for Admission Other Justification ANTONIO BORDEN III DO Dec 09, 2020 12:01
[2020-12-09] MEDS ORDERED: CLON0.1T PO (12:44)
[2020-12-09] MEDS ORDERED: ATOR20TA58 PO (12:44)
[2020-12-09] MEDS ORDERED: LISI-130 PO (12:44)
[2020-12-09] MEDS ORDERED: AMLO-187 PO (12:44)
[2020-12-09] MEDS ORDERED: HYDR12.575 PO (12:44)
--- NOTE | 2020-12-09 13:00 | NUR ---
Assumed care of patient at this time.
--- NOTE | 2020-12-09 13:01 | DS ---
DATE OF DISCHARGE: 12/09/2020 ADMITTING DIAGNOSIS: Hypertensive urgency. 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 CONSULTS: Cardiology. PROCEDURES: None. HOSPITAL COURSE: The patient is a pleasant, middle-aged female who presented with hypertensive urgency with blood pressure max of 266/128. She was admitted. We used IV antihypertensives including hydralazine and then started her on p.o. hydrochlorothiazide 12.5 a day, lisinopril 20 a day, amlodipine 10 a day, clonidine 0.1 t.i.d., and metoprolol XL 100 a day. Today, her pressures have come down to almost normal down to 165/88. Clinically, she looks great, wants to go home. We plan to discharge with close outpatient followup. DISPOSITION: Home. ACTIVITY: As tolerated. DIET: Low sodium. DISCHARGE MEDICATIONS: Please see the MRAD. Atorvastatin 20 a day, clonidine 0.1 t.i.d., metoprolol XL 100 daily, amlodipine 10 a day, lisinopril 20 a day, p.r.n. Tylenol, hydrochlorothiazide 12.5 daily and metformin 500 b.i.d. TOTAL TIME: 32 minutes. KELLY/TREASURE DR: Mike TID: [id number]
[2020-12-09 14:21] VITALS: BP 133/64
--- NOTE | 2020-12-09 16:25 | NUR ---
Discharge Note: [facility] Discharge instructions and discharge home medications reviewed with Family Member and a copy given. All questions have been answered and understanding verbalized. The following instructions and handouts were given: Hypertension and how to monitor blood pressures at home Discontinued lines and drains: Peripheral IV intact. Patient discharged to Home or Self Care withFamily Membervia Ambulated
--- NOTE | 2020-12-12 11:57 | HP ---
DATE OF SERVICE: 12/12/2020 ADMIT DATE: 12/07/2020 CHIEF COMPLAINT: Red eye. HISTORY OF PRESENT ILLNESS: The patient is a pleasant, middle-aged female who presented to the ER with a red eye. We have noticed that she has hypertensive urgency as well with pressures in the 200s. She also has a small scleral hemorrhage. We are going to admit the patient and get her blood pressure under control. PAST MEDICAL HISTORY: Hypertension, noncompliance, hyperlipidemia, diabetes. ALLERGIES: None. FAMILY HISTORY: Diabetes. SOCIAL HISTORY: She does not drink, smoke or take drugs. MEDICATIONS: Reviewed, please refer to the MRAD. REVIEW OF SYSTEMS: GENERAL: No history of weight change, weakness or fevers. SKIN: No bruising, hair changes or rashes. EYES: No blurred, double or loss of vision. NOSE AND THROAT: No history of nosebleeds, hoarseness or sore throat. HEART: No history of palpitations, chest pain or shortness of breath on exertion. LUNGS: Denies cough, hemoptysis, wheezing or shortness of breath. GASTROINTESTINAL: Denies changes in appetite, nausea, vomiting, diarrhea or constipation. GENITOURINARY: No history of frequency, urgency, hesitancy or nocturia. NEUROLOGIC: Denies history of numbness, tingling, tremor or weakness. PSYCHIATRIC: No history of panic, anxiety or depression. ENDOCRINE: No history of heat or cold intolerance, polyuria or polydipsia. EXTREMITIES: Denies muscle weakness, joint pain, pain on walking or stiffness. PHYSICAL EXAMINATION: EYES: She has a red eye on the right. VITAL SIGNS: Blood pressure is 200/100. GENERAL: No apparent distress. Alert and oriented. HENT: Normocephalic atraumatic, external auditory canals are patent. MUSCULOSKELETAL: Well developed, well nourished, good range of motion. ENDOCRINE: No thyromegaly was palpated. LYMPHATICS: No cervical chain or axillary nodes were noted. HEMATOPOIETIC: No bruising. NECK: Supple, no JVD, no thyromegaly was noted. LUNGS: Clear to auscultation in all lung allred without rhonchi or wheezing. HEART: RRR, S1, S2 present. Peripheral pulses intact, no obvious murmurs were noted. ABDOMEN: Soft, nontender. Positive bowel sounds no organomegaly, normal bowel sounds. EXTREMITIES: Without any cyanosis, clubbing, or edema. Pedal pulses intact, Homans sign is negative. NEUROLOGIC: Normal speech, normal tone. A and O x 3, moves all extremities, no obvious focal deficits. PSYCHIATRIC: Normal affect, normal mood. Stable. SKIN: No ulcerations or rashes, good skin turgor, no jaundice. VASCULAR: Good capillary refill, neurovascular bundle appears to be intact. ASSESSMENT AND PLAN: Hypertensive urgency and scleral hemorrhage. The patient will be admitted. We will start IV antihypertensives. Home meds. Deep venous thrombosis prophylaxis. Full code. KELLY/BILLY/KRISTIN DR: KELLY/eitan TID: [id number]
== END 2020-12-09 16:25 | disposition home or self-care (01) | DRG 305 ==
LOC: ER 18:04 → 6 SOUTH 22:35
PROVIDERS: ADMIT Internal Medicine; ATTEND Internal Medicine
DX: I16.1 Hypertensive emergency (principal); E11.9 Type 2 diabetes mellitus without complications; E66.01 Morbid (severe) obesity due to excess calories; H11.30 Conjunctival hemorrhage, unspecified eye; I10 Essential (primary) hypertension; Z82.3 Family history of stroke; Z86.73 Personal history of transient ischemic attack (TIA), and cerebral infarction without residual deficits; Z91.11 Patient's noncompliance with dietary regimen; Z91.19 Patient's noncompliance with other medical treatment and regimen; Z68.37 Body mass index [BMI] 37.0-37.9, adult; H57.89 Other specified disorders of eye and adnexa; Z98.51 Tubal ligation status
CPT/HCPCS: 36415; 70450; 70480; 71045; 80053; 80061; 81001; 82962; 83036; 83880; 84443; 84484; 85025; 90471; 90686; 93005; 93306; 96374; 96375; 96376; J0360; J3490; 99285-25; G0378